=== PATIENT | male | born 1945 | race Caucasian/White ===

== ENCOUNTER 2022-08-13 18:26 | Emergency (ER) | payer MEDICARE ==
[2022-08-13] MEDS ORDERED: Boostrix 0.5 ML (Tdap) VIAL (>/=7 yrs of age) ONE (18:41)
[2022-08-13] MEDS ORDERED: Lidocaine 1% (PF) 30 ML VIAL ONE (18:45)
[2022-08-13] MEDS ORDERED: Cephalexin 250 MG CAP ONE (19:04)
[2022-08-13] MEDS ORDERED: Bacitracin 1 PK ONE (19:04)
== END 2022-08-13 19:13 | disposition home or self-care (01) ==
LOC: NAV ERS 18:26
DX: S61.247A Puncture wound with foreign body of left little finger without damage to nail, initial encounter (principal); I10 Essential (primary) hypertension; W45.8XXA Other foreign body or object entering through skin, initial encounter; Z23 Encounter for immunization
CPT/HCPCS: 90471; 90715; J2001